=== PATIENT | female | born 1960 | race Two or more races ===

== ENCOUNTER 2016-11-19 09:55 | Emergency (ER) | payer BC ==
[~2016-11-19] VITALS: Ht 162.6 cm; Wt 77.1 kg
[2016-11-19 10:40] VITALS: BP 153/71
[2016-11-19] MEDS ORDERED: TRAM-29 PO (12:09)
--- NOTE | 2016-11-19 12:09 | PHYS DOC ---
Past Medical History Past Medical History: High Cholesterol Past Surgical History: Other Additional Past Surgical Histo: ABD SX Alcohol Use: None Drug Use: None Adult General Chief Complaint Chief Complaint: FOREIGNBODY EAR HPI HPI Patient is a 55 year old female who presents today with right ear possible foreign object, patient states she was cleaning out her right ear with a cotton tipped Q-tip this morning, she believes the end cotton tip got stuck in her ear. Patient states she noticed some blood from the ear as well. Review of Systems Review of Systems Constitutional: Denies fever or chills [] Eyes: Denies change in visual acuity, redness, or eye pain [] HENT: Foreign object to the right ear Respiratory: Denies cough or shortness of breath [] Cardiovascular: No additional information not addressed in HPI [] Integument: Denies rash or skin lesions [] Neurologic: Denies headache, focal weakness or sensory changes [] Endocrine: Denies polyuria or polydipsia [] Physical Exam Physical Exam Constitutional: Well developed, well nourished, no acute distress, non-toxic appearance. [] HENT: Normocephalic, atraumatic, bilateral external ears normal, oropharynx moist, no oral exudates, nose normal. [] Right ear canal with no foreign object found, there is small amount of bright red blood in the canal, the TM is perforated at 5 o'clock position. Eyes: PERRLA, EOMI, conjunctiva normal, no discharge. [] Neck: Normal range of motion, no tenderness, supple, no stridor. [] Cardiovascular:Heart rate regular rhythm, no murmur [] Lungs & Thorax: Bilateral breath sounds clear to auscultation [] Extremities: No tenderness, no cyanosis, no clubbing, ROM intact, no edema. [] Neurologic: Alert and oriented X 3, normal motor function, normal sensory function, no focal deficits noted. [] Psychologic: Affect normal, judgement normal, mood normal. [] Current Patient Data Vital Signs Vital Signs Date Time Temp Pulse Resp B/P Pulse Ox O2 Delivery O2 Flow Rate FiO2 11/19/16 10:40 98.3 74 18 95 Room Air 98.3 EKG EKG [] Radiology/Procedures Radiology/Procedures [] Course & Med Decision Making Course & Med Decision Making Pertinent Labs and Imaging studies reviewed. (See chart for details) Patient is in the ED complaining of cotton tipped in her ear. I did evaluate the ear, and could not find any foreign object in the ear, she does have a perforated TM which could've occurred from the Q-tip poking her ear. She was advised never to put anything smaller than her fingers in her ear. She was discharged with Ultram as needed for pain. Follow-up with ENT as needed or PCP. Dragon Disclaimer Dragon Disclaimer This electronic medical record was generated, in whole or in part, using a voice recognition dictation system. Departure Departure Impression: Primary Impression: Perforated tympanic membrane Disposition: HOME, SELF-CARE Condition: STABLE Referrals: PATRIC[facility] (PCP) Follow-up with your own doctor in one week Patient Instructions: Ear Foreign Body Additional Instructions: You were seen for concern of a foreign object in your ear. We did not find any foreign object in the right ear. You did perforate the right tympanic membrane, this will heal up slowly. It may be slightly painful for a couple days. Do not insert anything less than the size of your finger in your ears. Take the prescribed pain medicines as needed. Come back to the emergency room for any concerns, follow-up with your doctor in a week. Scripts Tramadol Hcl (Ultram)50 Mg Tablet1 Tab PO Q6HRS #30 TAB Prov:JEVON HAMEED APRN 11/19/16 Problem Qualifiers Primary Impression: Perforated tympanic membrane Laterality: right Qualified Code: H72.91 - Unspecified perforation of tympanic membrane, right ear JEVON HAMEED APRN Nov 19, 2016 12:09
== END 2016-11-19 12:30 | disposition home or self-care (01) ==
LOC: ER 09:55
DX: H72.91 Unspecified perforation of tympanic membrane, right ear (principal); E78.00 Pure hypercholesterolemia, unspecified
CPT/HCPCS: 99283